=== PATIENT | male | born 1950 | race Caucasian/White ===

== ENCOUNTER 2016-05-07 09:40 | Outpatient (CLI) | payer OTHER | END 2016-05-07 23:59 | DX: Z00.00 Encounter for general adult medical examination without abnormal findings (principal) ==

== ENCOUNTER 2018-03-06 07:06 | Day surgery (SDC) | payer OTHER ==
[2018-03-06] MEDS ORDERED: ceFAZolin 2 GM/50 ML 2 GM/50 ML BAG IV ONE ×2 (07:14→10:23)
[2018-03-06] MEDS ORDERED: LACTATED RINGERS 1,000 ML IV ONE (07:14)
--- NOTE | 2018-03-06 07:32 | ANESTHESIA ---
Pre-Anesthesia VS, & Labs - Diagnosis L inguinal hernia - Procedure L inguinal hernia repair Vital Signs: Last Vital Signs Temp 35.9 C L 03/06/18 07:32 Pulse 69 03/06/18 07:32 Resp 18 03/06/18 07:32 BP 127/82 H 03/06/18 07:32 Pulse Ox 97 03/06/18 07:32 Height 6 ft 2 in Weight (kg) 93 kg - NPO >8 hours Home Medications and Allergies Home Medications: Ambulatory Orders No Known Home Medications 03/03/18 No Known Home Medications 03/03/18 Allergies/Adverse Reactions: Allergies Allergy/AdvReac Type Severity Reaction Status Date / Time No Known Drug Allergies Allergy Verified 03/03/18 13:43 Anes History & Medical History - Anesthetic History Family history of Anesthesia Complications: Denies Family history of Malignant Hyperthermia: Denies - Medical History Cardiovascular: reports: None Pulmonary: reports: None Gastrointestinal: reports: Diverticulitis, Other Urinary: reports: None Neuro: reports: Other (vertigo) Musculoskeletal: reports: None Endocrine/Autoimmune: reports: None Skin: reports: Other - Surgical History Eyes Ears Nose Throat (EENT): Other (R ear surgery) Orthopedic: Arthroscopic surgery Dermatologic: Other (pilonidal cyst) Exam General: Alert, Oriented x3, Cooperative Dental: WNL Mouth Openin Fingerbreadth Neck Mobility: Normal Mallampati classification: II Respiratory: Lungs clear, Normal breath sounds, No respiratory distress Cardiovascular: Regular rate Neurological: Normal speech Mental/Cognitive Status: Alert/Oriented X3, Normal for patient Cognitive Status: Within normal limits Plan Anesthesia Type: MAC (vs GA) Consent for Procedure(s) Verified and Reviewed: Yes Code Status: Attempt Resuscitation ASA classification: 2-Mild systemic disease Is this case an emergency?: No
[2018-03-06] MEDS ORDERED: ceFAZolin 1 GM VIAL ONE (08:16)
[2018-03-06] MEDS ORDERED: LIDOCAINE 1% 50 ML MDV ONE (08:19)
[2018-03-06] MEDS ORDERED: BUPIVACAINE 0.5%-EPI 1:200000 PF 30 ML VIAL ONE (08:20)
[2018-03-06] MEDS ORDERED: LIDOCAINE-MPF 1% 30 ML VIAL ONE (08:53)
[2018-03-06] MEDS ORDERED: KETOROLAC 30 MG/ML VIAL IVP ONE (10:23)
[2018-03-06] MEDS ORDERED: MIDAZOLAM 2 MG/2 ML VIAL IVP ONE (10:23)
[2018-03-06] MEDS ORDERED: ACETAMINOPHEN 1,000 MG/100 ML 100 ML IV ONE (10:23)
[2018-03-06] MEDS ORDERED: ROPIVACAINE 0.5% PF 20 ML AMPULE EP ONE (10:23)
[2018-03-06] MEDS ORDERED: fentaNYL 100 MCG/2 ML VIAL IVP ONE (10:23)
[2018-03-06] MEDS ORDERED: PROPOFOL 200 MG/20 ML VIAL IVP ONE (10:23)
[2018-03-06] MEDS ORDERED: ONDANSETRON 4 MG/2 ML VIAL IVP PRN (10:31)
[2018-03-06] MEDS ORDERED: IBUPROFEN 600 MG TABLET PO PRN (10:31)
[2018-03-06] MEDS ORDERED: ACETAMINOPHEN 325 MG TABLET PO PRN (10:31)
[2018-03-06] MEDS ORDERED: oxyCODONE 5 MG TABLET PO PRN (10:31)
[2018-03-06] MEDS ORDERED: oxyCODONE 5 MG TABLET ONE (11:29)
[2018-03-06 13:01] VITALS: BP 128/74
--- NOTE | 2018-03-06 16:27 | OPERATIVE REPORT ---
DATE OF SERVICE: 03/06/2018 Physician: Pernell Angel MD PREOPERATIVE DIAGNOSIS: Symptomatic left inguinal hernia. POSTOPERATIVE DIAGNOSIS: Symptomatic left inguinal hernia. PROCEDURE PERFORMED: Open repair of symptomatic left inguinal hernia with mesh. ANESTHESIA: Local plus monitored anesthesia care by Lucas Borges MD. ESTIMATED BLOOD LOSS: 5 mL. COMPLICATIONS: None. DRAINS: None. FINDINGS: A small direct left inguinal hernia was identified. There is no evidence of indirect or femoral hernia. INDICATIONS: Patient is a 67-year-old gentleman with a history of progressively enlarging reducible left groin bulge. Examination revealed a reducible left inguinal hernia. He was advised to undergo elective repair. TECHNIQUE: After informed consent, patient was taken to the operating room where he was sedated and monitored. Preoperative preparation included administration of 2 grams of cefazolin intravenously within an hour of the incision and application of sequential calf compression boots. His left groin had been clipped and was prepared with iodoform solution, following which a left groin block was instituted using a 50:50 combination of 1% lidocaine plain and 0.5% Marcaine with epinephrine; a total of 30 mL of the mixture was used. The left groin was then reprepared with ChloraPrep solution and draped in the usual sterile fashion. Transverse incision was made in the skin lines of the left groin, beginning just above the pubic tubercle and extending laterally approximately 4-5 cm in length. Hemostasis achieved with electrocautery and 2-0 Vicryl ties. Incision carried down through the subcutaneous tissues until the external oblique aponeurosis was identified. It was incised along the lines of the fibers in such a manner as to open the external ring and expose the internal ring. The spermatic cord was mobilized with a [place] drain. The ilioinguinal nerve was identified and preserved. The direct defect was readily identified and dissected free from surrounding cord structures. It was broad-based and was reduced and held in reduction with a continuous 0 Ethibond suture imbricating the transversalis fascia. After the cord was skeletonized and a search for an indirect hernia was made, none was identified and hemostasis assured. The wound was irrigated with an antibiotic solution containing 1 gram of Ancef per liter. The Bard mesh precut inguinal patch was placed on the field, soaked in the antibiotic solution, and then placed over the inguinal floor and secured in place with continuous 3-0 Prolene suture, securing the mesh to the shelving edge of Poupart's ligament inferiorly, to the internal oblique aponeurosis superolaterally, and to the lateral border of the rectus sheath medially. Care was taken to avoid excessive tightening of the patch around the cord level of the internal ring. After hemostasis was assured, the wound was again irrigated with antibiotic solution, following which wound closure was accomplished in layers using continuous 2-0 Vicryl to reapproximate the external oblique aponeurosis overlying the cord, with care being taken to avoid entrapment of the ilioinguinal nerve. Subcutaneous tissues were approximated with 2 layers of 3-0 Vicryl incorporating Hermelindo's fascia, and then the skin closure was accomplished with a 4-0 Monocryl subcuticular skin closure, followed by Dermabond. The procedure was terminated. The patient transferred out of the operating room in satisfactory condition. Sponge and needle counts were correct x2. No drains were used. cc: Maurisio Chowdhury MD TD: 03/06/2018 10:49 MTDD
== END 2018-03-06 07:07 | disposition home or self-care (01) ==
LOC: SDS 07:06
PROVIDERS: ATTEND Internal Medicine Gastroenterology
PROC: 0YU60JZ Supplement Left Inguinal Region with Synthetic Substitute, Open Approach (ICD-10-PCS; principal; 2018-03-06 08:15)
DX: K40.90 Unilateral inguinal hernia, without obstruction or gangrene, not specified as recurrent (principal); K42.9 Umbilical hernia without obstruction or gangrene; E78.5 Hyperlipidemia, unspecified
CPT/HCPCS: 49505; A9270; C1781; J0690; J7120

== ENCOUNTER 2019-03-05 11:13 | Outpatient (CLI) | payer OTHER ==
--- NOTE | 2019-03-05 15:52 | Ultrasound Report ---
Reason: LT INGUINAL PAIN Procedure Date: 03/05/2019 Accession Number: [id number] / [id number] Procedure: US - Pelvic Limited or F/U CPT Code: Final Report FULL RESULT: EXAM: INGUINAL ULTRASOUND EXAM DATE: 03/05/2019 11:26 AM. CLINICAL HISTORY: LT INGUINAL PAIN. COMPARISON: None. TECHNIQUE: Real-time sonographic imaging of the inguinal canals and vascular structures, including color-flow, was performed by the resident buyer. Multiple agency service representative static images were saved for review. FINDINGS: Hernia: None identified with or without Valsalva. Soft Tissues: Normal. No fluid collections or adenopathy. Other: None. IMPRESSION: Normal. No inguinal hernia evident. RADIA
== END 2019-03-05 11:14 | disposition home or self-care (01) ==
LOC: DI 11:13
PROVIDERS: ATTEND Nurse Practitioner Family
DX: R10.32 Left lower quadrant pain (principal)
CPT/HCPCS: 76857

== ENCOUNTER 2019-06-19 08:00 | Outpatient (CLI) | payer OTHER ==
[2019-06-19 12:24] LABS: BASOPHILS # (AUTO) 0.1 10^3/uL (0.0-0.1); BASOPHILS % (AUTO) 0.8 %; EOSINOPHILS # (AUTO) 0.1 10^3/uL (0.0-0.7); EOSINOPHILS % (AUTO) 1.9 %; HGB - HEMOGLOBIN 15.7 g/dL (14.0-18.0); LYMPHOCYTES # (AUTO) 1.7 10^3/uL (1.5-3.5); LYMPHOCYTES % (AUTO) 26.9 %; MEAN CORPUSCULAR HEMOGLOBIN 29.1 pg (27.0-31.0); MEAN CORPUSCULAR HGB CONC 32.5 g/dL (32.0-36.0); MEAN CORPUSCULAR VOLUME 89.6 fL (80.0-94.0); MEAN PLATELET VOLUME 9.8 fL (7.4-11.4); MONOCYTES # (AUTO) 0.6 10^3/uL (0.0-1.0); NEUTROPHILS % (AUTO) 61.2 %; PLT - PLATELET COUNT 255 10^3/uL (130-450); RED BLOOD COUNT 5.39 10^6/uL (4.70-6.10); RED CELL DISTRIBUTION WIDTH 13.4 % (12.0-15.0); WHITE BLOOD COUNT 6.5 x10^3/uL (4.8-10.8)
[2019-06-19 12:43] LABS: ALBUMIN 4.2 g/dL (3.2-5.5); ALBUMIN/GLOBULIN RATIO 1.2 (1.0-2.2); ALKALINE PHOSPHATASE 80 IU/L (42-121); ALT ALANINE AMINOTRANSFERASE 41 IU/L (10-60); AST ASPARTATE AMINOTRANSFERASE 30 IU/L (10-42); BILIRUBIN,TOTAL 1.4 mg/dL (0.2-1.0); BUN - BLOOD UREA NITROGEN 19 mg/dL (6-20); CALCIUM 8.9 mg/dL (8.5-10.3); CARBON DIOXIDE - CO2 29 mmol/L (21-32); CHLORIDE 102 mmol/L (101-111); CHOL/HDL RATIO 5.1 (<5.0); CHOLESTEROL 224 mg/dL; GLUCOSE 91 mg/dL (70-100); HDL CHOLESTEROL 44 mg/dL; LDL CHOLESTEROL,CALCULATED 159 mg/dL; LDL/HDL RATIO 3.6 (<3.6); SODIUM 138 mmol/L (135-145); TOTAL PROTEIN 7.7 g/dL (6.7-8.2); VLDL CHOLESTEROL 21 mg/dL
== END 2019-06-19 23:59 | disposition home or self-care (01) ==
LOC: LAB.WCP 08:00
PROVIDERS: ATTEND Family Medicine
DX: E78.5 Hyperlipidemia, unspecified (principal); K76.0 Fatty (change of) liver, not elsewhere classified; Z12.5 Encounter for screening for malignant neoplasm of prostate
CPT/HCPCS: 36415; 80053; 80061; 83721; 84153; 84443; 85025

== ENCOUNTER 2021-02-18 08:00 | Outpatient (CLI) | payer OTHER ==
[2021-02-18 18:32] LABS: BASOPHILS # (AUTO) 0.1 10^3/uL (0.0-0.1); BASOPHILS % (AUTO) 0.8 %; EOSINOPHILS # (AUTO) 0.1 10^3/uL (0.0-0.7); EOSINOPHILS % (AUTO) 1.2 %; HCT - HEMATOCRIT 45.2 % (42.0-52.0); HGB - HEMOGLOBIN 14.6 g/dL (14.0-18.0); LYMPHOCYTES # (AUTO) 1.7 10^3/uL (1.5-3.5); LYMPHOCYTES % (AUTO) 19.4 %; MEAN CORPUSCULAR HEMOGLOBIN 28.8 pg (27.0-31.0); MEAN CORPUSCULAR HGB CONC 32.3 g/dL (32.0-36.0); MEAN CORPUSCULAR VOLUME 89.2 fL (80.0-94.0); MEAN PLATELET VOLUME 10.2 fL (7.4-11.4); MONOCYTES # (AUTO) 0.6 10^3/uL (0.0-1.0); MONOCYTES % (AUTO) 6.5 %; NEUTROPHILS # (AUTO) 6.2 10^3/uL (1.5-6.6); NEUTROPHILS % (AUTO) 71.9 %; PLT - PLATELET COUNT 249 10^3/uL (130-450); RED BLOOD COUNT 5.07 10^6/uL (4.70-6.10); RED CELL DISTRIBUTION WIDTH 13.5 % (12.0-15.0); WHITE BLOOD COUNT 8.7 x10^3/uL (4.8-10.8)
[2021-02-18 18:51] LABS: ALBUMIN/GLOBULIN RATIO 1.2 (1.0-2.2); ALKALINE PHOSPHATASE 83 IU/L (42-121); ALT ALANINE AMINOTRANSFERASE 26 IU/L (10-60); AST ASPARTATE AMINOTRANSFERASE 23 IU/L (10-42); BILIRUBIN,TOTAL 1.2 mg/dL (0.2-1.0); BUN - BLOOD UREA NITROGEN 17 mg/dL (6-20); CALCIUM 9.2 mg/dL (8.5-10.3); CARBON DIOXIDE - CO2 30 mmol/L (21-32); CHLORIDE 100 mmol/L (101-111); CHOLESTEROL 231 mg/dL; CREATININE 0.9 mg/dL (0.6-1.2); GFR - MDRD 84 (>89); GLUCOSE 85 mg/dL (70-100); HDL CHOLESTEROL 46 mg/dL; LDL CHOLESTEROL,CALCULATED 161 mg/dL; LDL/HDL RATIO 3.5 (<3.6); SODIUM 139 mmol/L (135-145); TOTAL PROTEIN 7.4 g/dL (6.7-8.2); TRIGLYCERIDES 121 mg/dL; VLDL CHOLESTEROL 24 mg/dL
== END 2021-02-18 23:59 ==
LOC: LAB.WCP 08:00
PROVIDERS: ATTEND Family Medicine
DX: E78.5 Hyperlipidemia, unspecified (principal); Z12.5 Encounter for screening for malignant neoplasm of prostate; K76.0 Fatty (change of) liver, not elsewhere classified
CPT/HCPCS: 36415; 80053; 80061; 83721; 84153; 85025

== ENCOUNTER 2021-03-02 16:39 | Outpatient (CLI) | payer OTHER ==
--- NOTE | 2021-03-02 17:26 | XRAY Report ---
PROCEDURE: Chest 2 View X-Ray INDICATIONS: PAIN TECHNIQUE: 2 view(s) of the chest. COMPARISON: None. FINDINGS: Surgical changes and devices: None. Lungs and pleura: No pleural effusions or pneumothorax. Lungs are clear. Mediastinum: Mediastinal contours are normal. Heart size is normal. Bones and chest wall: No suspicious bony abnormalities. Soft tissues appear unremarkable. IMPRESSION: No evidence acute pulmonary process. Reviewed by: Abilio Santoyo MD on 03/02/2021 5:25 PM [facility] Approved by: Abilio Santoyo MD on 03/02/2021 5:25 PM [facility] Station ID: [id number]
== END 2021-03-02 16:40 | disposition home or self-care (01) ==
LOC: DI.N 16:39
PROVIDERS: ATTEND Family Medicine
DX: R05.3 Chronic cough (principal)

== ENCOUNTER → 2022-02-15 | Outpatient (CLI) | payer OTHER | END | disposition short-term general hospital (02) | LOC: EMS 05:50 | DX: R10.13 Epigastric pain (principal); R06.02 Shortness of breath | CPT/HCPCS: A0425; A0427 ==

== ENCOUNTER 2022-09-16 08:04 | Day surgery (SDC) | payer OTHER, MEDICARE ==
[2022-09-16] MEDS ORDERED: LACTATED RINGERS 1,000 ML IV ONE (08:38)
--- NOTE | 2022-09-16 09:18 | ANESTHESIA ---
Pre-Anesthesia VS, & Labs - Diagnosis screening - Procedure colonoscopy Vital Signs: Temp Pulse Resp BP Pulse Ox O2 Flow Rate 36 C L 74 16 123/75 97 09/16/22 08:41 09/16/22 08:41 09/16/22 08:41 09/16/22 08:41 09/16/22 08:41 Height: 6 ft 2 in Weight (kg): 89 kg Body Mass Index: 25.2 BMI Classification: Overweight - NPO Other (prep finished around 530) Home Medications and Allergies Home Medications: Ambulatory Orders Metoprolol Succinate [Toprol Xl] 50 mg PO DAILY 09/16/22 Metoprolol Succinate [Toprol Xl] 50 mg PO DAILY 09/16/22 Allergies/Adverse Reactions: Allergies Allergy/AdvReac Type Severity Reaction Status Date / Time No Known Drug Allergies Allergy Verified 03/03/18 13:43 Anes History & Medical History - Anesthetic History Anesthesia Complications: reports: No previous complications - Medical History Cardiovascular: reports: None, Hypertension Pulmonary: reports: None Gastrointestinal: reports: GERD, Hiatal hernia, Diverticulitis, Other Urinary: reports: None Neuro: reports: Other (vertigo) Musculoskeletal: reports: None, Chronic back pain Endocrine/Autoimmune: reports: None Skin: reports: Eczema Smoking Status: Never smoker Psychosocial: reports: Alcohol (none) - Surgical History General: reports: Cholecystectomy Eyes Ears Nose Throat (EENT): reports: Other Orthopedic: reports: Arthroscopic surgery Dermatologic: reports: Other Exam General: Alert, Oriented x3 Dental: WNL Mouth Opening: Greater than 4 Fingerbreadths Neck Mobility: Normal Mallampati classification: II Thyromental Distance: greater than 6 cm Respiratory: Lungs clear Cardiovascular: Regular rate Plan Anesthesia Type: Total IV Consent for Procedure(s) Verified and Reviewed: Yes Code Status: Attempt Resuscitation ASA classification: 2-Mild systemic disease Is this case an emergency?: No
[2022-09-16] MEDS ORDERED: PROPOFOL 500 MG/50 ML 500 MG/50 ML VIAL ONE (09:28)
[2022-09-16] MEDS ORDERED: PROPOFOL 200 MG/20 ML VIAL IVP ONE (10:04)
[2022-09-16] MEDS ORDERED: LACTATED RINGERS 400 ML IV ONE (10:15)
[2022-09-16 10:42] VITALS: BP 98/46
--- NOTE | 2022-09-16 15:33 | ANESTHESIA POST OP EVALUATION ---
Anesthesia Post Eval - Post Anesthesia Eval Vitals: Last Vital Signs Temp 36 C L 09/16/22 10:38 Pulse 70 09/16/22 10:38 Resp 14 09/16/22 10:38 BP 98/46 L 09/16/22 10:38 Pulse Ox 98 09/16/22 10:38 O2 Flow Rate CV Function Including HR & BP: Stable Pain Control: Satisfactory Nausea & Vomiting: Negative Mental Status: Baseline Respiratory Status: Airway Patent Hydration Status: Satisfactory Anesthesia Complications: None
== END 2022-09-16 08:05 | disposition home or self-care (01) ==
LOC: SDS 08:04
PROVIDERS: ATTEND Surgery
DX: Z12.11 Encounter for screening for malignant neoplasm of colon (principal); K57.30 Diverticulosis of large intestine without perforation or abscess without bleeding; I10 Essential (primary) hypertension
CPT/HCPCS: 45378; J7120

== ENCOUNTER 2023-01-25 08:30 | Outpatient (CLI) | payer MEDICARE, OTHER ==
[2023-01-25 12:26] LABS: BASOPHILS # (AUTO) 0.1 10^3/uL (0.0-0.1); BASOPHILS % (AUTO) 0.9 %; EOSINOPHILS # (AUTO) 0.2 10^3/uL (0.0-0.7); HCT - HEMATOCRIT 46.4 % (42.0-52.0); HGB - HEMOGLOBIN 14.8 g/dL (14.0-18.0); LYMPHOCYTES # (AUTO) 1.8 10^3/uL (1.5-3.5); LYMPHOCYTES % (AUTO) 26.9 %; MEAN CORPUSCULAR HEMOGLOBIN 28.7 pg (27.0-31.0); MEAN CORPUSCULAR HGB CONC 31.9 g/dL (32.0-36.0); MEAN CORPUSCULAR VOLUME 89.9 fL (80.0-94.0); MONOCYTES # (AUTO) 0.5 10^3/uL (0.0-1.0); PLT - PLATELET COUNT 242 10^3/uL (130-450); RED BLOOD COUNT 5.16 10^6/uL (4.70-6.10); WHITE BLOOD COUNT 6.6 x10^3/uL (4.8-10.8)
[2023-01-25 13:02] LABS: ALBUMIN 4.3 g/dL (3.2-5.5); ALBUMIN/GLOBULIN RATIO 1.3 (1.0-2.2); ALKALINE PHOSPHATASE 84 IU/L (42-121); ALT ALANINE AMINOTRANSFERASE 19 IU/L (10-60); AST ASPARTATE AMINOTRANSFERASE 21 IU/L (10-42); BILIRUBIN,TOTAL 1.1 mg/dL (0.2-1.0); BUN - BLOOD UREA NITROGEN 19 mg/dL (6-20); CALCIUM 9.6 mg/dL (8.5-10.3); CARBON DIOXIDE - CO2 31 mmol/L (21-32); CHLORIDE 102 mmol/L (101-111); CHOL/HDL RATIO 5.1 (<5.0); CHOLESTEROL 234 mg/dL; GFR - MDRD 74 (>89); GLUCOSE 92 mg/dL (74-104); HDL CHOLESTEROL 46 mg/dL; LDL CHOLESTEROL,CALCULATED 161 mg/dL; LDL/HDL RATIO 3.5 (<3.6); POTASSIUM 4.5 mmol/L (3.5-4.5); SODIUM 138 mmol/L (135-145); TOTAL PROTEIN 7.6 g/dL (6.4-8.9); TRIGLYCERIDES 136 mg/dL (48-352); VLDL CHOLESTEROL 27 mg/dL
== END 2023-01-25 08:31 | disposition home or self-care (01) ==
LOC: LAB.N 08:30
PROVIDERS: ATTEND Physician Assistant
DX: Z00.00 Encounter for general adult medical examination without abnormal findings (principal); E78.5 Hyperlipidemia, unspecified; Z12.5 Encounter for screening for malignant neoplasm of prostate
CPT/HCPCS: 36415; 80053; 80061; 85025; G0103; 83721; 84153

== ENCOUNTER 2023-08-18 08:37 | Outpatient (CLI) | payer MEDICARE, OTHER ==
[2023-08-18 13:10] LABS: ALBUMIN 4.1 g/dL (3.2-5.5); ALBUMIN/GLOBULIN RATIO 1.5 (1.0-2.2); ALKALINE PHOSPHATASE 128 IU/L (42-121); ALT ALANINE AMINOTRANSFERASE 32 IU/L (10-60); AST ASPARTATE AMINOTRANSFERASE 26 IU/L (10-42); BILIRUBIN,TOTAL 1.1 mg/dL (0.2-1.0); BUN - BLOOD UREA NITROGEN 16 mg/dL (6-20); CALCIUM 9.3 mg/dL (8.5-10.3); CARBON DIOXIDE - CO2 32 mmol/L (21-32); CHLORIDE 104 mmol/L (101-111); CHOL/HDL RATIO 2.3 (<5.0); CHOLESTEROL 103 mg/dL; CREATININE 0.9 mg/dL (0.6-1.3); GFR - MDRD 83 (>89); GLUCOSE 98 mg/dL (74-104); HDL CHOLESTEROL 44 mg/dL; LDL CHOLESTEROL,CALCULATED 42 mg/dL; POTASSIUM 4.5 mmol/L (3.5-4.5); SODIUM 139 mmol/L (135-145); TOTAL PROTEIN 6.8 g/dL (6.4-8.9); TRIGLYCERIDES 84 mg/dL (48-352); VLDL CHOLESTEROL 17 mg/dL
== END 2023-08-18 08:38 | disposition home or self-care (01) ==
LOC: LAB.N 08:37
PROVIDERS: ATTEND Physician Assistant
DX: E78.5 Hyperlipidemia, unspecified (principal)
CPT/HCPCS: 36415; 80053; 80061; 83721

== ENCOUNTER 2023-11-22 09:03 | Outpatient (CLI) | payer MEDICARE ==
--- NOTE | 2023-11-22 09:24 | CARDIAC PROCEDURE NOTE ---
Stress Test Report Service Date: 11/22/23 Service Time: 09:30 Ordering Provider: Alesia Cota PA-C Indication for Test: Assess exertional dyspnea and associated chest tightness. Significant Medical History: Arley is referred for a treadmill stress echocardiogram, to assess his concern for progressive exertional dyspnea, sometimes with associated tightness across his chest. He has been under the care of a [facility] city council member at [facility] (that we could not identify specifically) whom he has seen at [facility] for assessment of PVCs, and possibly SVT. His palpitation symptoms are better controlled with metoprolol, with last dose taken 36 hours ago. He has had treadmill stress tests in the past that, per his understanding, have been normal. His current symptomatology has been gradually increasing over the last several months, and consists of a tight feeling in his lower chest with walking, especially uphill. At times there has been associated non-radiating chest tightness but there has been no associated nausea or diaphoresis. The symptoms do not occur at rest. He has another type of right posterior infrascapular chest discomfort that he believes to be a separate (musculoskeletal) issue, that has benefited from the use of lidocaine patches, though this aspect seems to have become quiescent and he is not using patches at the present time. He otherwise feels generally well and does not believe he has lost stamina. Cardiac Risk Factors: Positive for history of hyperlipidemia (treated for about 1 year with atorvastatin 40 mg daily, with most recent fasting lipids in 08/11 including total cholesterol 103, LDL cholesterol 42, HDL cholesterol 44, TG 84); at times he has had elevated blood pressure but he does not carry the diagnosis of hypertension; he has no history of diabetes, tobacco smoking ever or any close family members to have atherosclerotic diseases such as CAD or stroke. Type of Stress Test: ETT with Echocardiography Procedure: -Exercise Treadmill Test- After signing informed consent, the patient underwent echo imaging at rest and then performed treadmill exercise using a Arley protocol. The patient exercised for 5 minutes 49 seconds and achieved a peak heart rate of 141 (94 percent predicted maximum heart rate for age), and an estimated workload of 7.1 METS. The test was terminated due to fatigue/shortness of breath and mild chest tightness. Resting heart rate: 92 Peak heart rate: 141 Normal response to exercise. Resting BP: 138/94 Peak BP: 176/68 Elevated resting diastolic BP, with normal increase in systolic and decrease in diastolic BPs in response to exercise. Room air oxygen saturation during exercise ranged between 93-96%. Rhythm during exercise: Sinus rhythm throughout, with isolated PACs and PVCs (total of 13 during 37 minutes of total monitoring) with perhaps brief increase in both in early Recovery. Symptoms: Along with described shortness of breath he did experience mild chest tightness, mimicking the symptoms he experiences with exertion at home. EKG at rest showed normal sinus rhythm with left atrial abnormality and early precordial R/S transition, with prominent septal q waves in multiple leads but normal/interpretable ST-T pattern. EKG at peak stress showed J-point depression with upsloping ST segments, NOT meeting EKG diagnostic criteria for ischemia. In Recovery HR and BP rapidly/normally decreased towards baseline levels (HR 104, BP 148/70 at 5:00). Echo imaging, performed at rest and with stress, will be reported separately. IBrady MD, was present throughout this treadmill stress study and supervised it in its entirety. Summary: 1) Exercise tolerance was slightly below average for age and sex as evidenced by NORMA of 11%. 2) Normal resting EKG. 3) Adequate level of exercise was achieved on this treadmill stress test. 4) Normal BP response to exercise. 5) No ischemic changes by EKG criteria were seen at peak stress. 6) Echo image interpretation reveals normal left ventricular size, wall thickness and systolic function, with appropriate hyperdynamic augmentation of all segments with exercise, indicating no evidence of prior infarct or inducible ischemia. No significant valvular abnormality or elevation of estimated pulmonary artery systolic pressure seen on screening study. See separate report for more details. Conclusions and Recommendations: 1) Overall these are reassuring treadmill stress echocardiogram results, with adequate heart rate response to a diagnostic level, normal BP increase, exercise time that was slightly below average for age and no evidence of inducible ischemia by EKG or echocardiographic analysis, even though he did experience his usual shortness of breath and mild chest tightness. 2) During review of the test results he admitted that his exercise level has fallen off somewhat and that there is an opportunity to do more, in order to get back into better condition. 3) He was advised to resume his metoprolol and atorvastatin at present doses, while awaiting further input from his care team.
== END 2023-11-22 09:04 | disposition home or self-care (01) ==
LOC: DI 09:03
PROVIDERS: ATTEND Physician Assistant
DX: R07.89 Other chest pain (principal); R06.09 Other forms of dyspnea; E78.5 Hyperlipidemia, unspecified
CPT/HCPCS: 93350